=== PATIENT | male | born 1970 | race Caucasian/White ===

== ENCOUNTER 2016-09-03 20:09 | Emergency (ER) | payer OTHER ==
[2016-09-03 21:04] LABS: ABSOLUTE NEUTROPHIL COUNT 4.9 K/mm3 (1.8-7.7); BASO % 0.5 % (0.2-1.0); EOS # 0.1 (0.0-0.5); EOS % 1.3 % (0.9-2.9); HEMATOCRIT 40.1 % (32.0-52.0); HEMOGLOBIN 14.1 gm/l (14.0-18.0); IMM NEUT% 0.4 % (0-1); LYMPH # 2.2 (1.0-4.8); LYMPH % 27.6 % (15-45); MEAN CELL VOLUME 90.9 fl (80.0-94.0); MEAN CORPUSCULAR HGB CONC 35.2 g/dl (33.0-37.0); MEAN PLATELET VOLUME 8.7 fl (7.4-10.4); MONO # 0.6 (0.0-0.8); MONO % 8.1 % (4-12); NEUT % 62.1 % (43-75); PLATELET COUNT 283 K/mm3 (130-400); RED CELL DISTRIBUTION WIDTH 11.8 % (11.5-14.5)
[2016-09-03 21:24] LABS: ALB/GLOB RATIO 1.5 (>1.0); ALBUMIN 4.1 gm/dL (3.5-5.7)
--- NOTE | 2016-09-04 06:18 | CT ---
HEAD W/O CON COMPARISON: None HISTORY: Ground-level fall, hitting head. Seizure. TECHNIQUE: Using a [employer] [address] scanner, images were obtained through the head. An automated dose reduction technique was used to minimize patient radiation dose. DOSE INFORMATION: CTDIvol (mGy): 51.70 DLP(mGycm): 964.80 FINDINGS: Mass: None Intracranial Hemorrhage: None Acute Infarction: None Cerebral hemispheres: Normal Basal ganglia: Normal Thalami: Normal Brainstem: Normal Cerebellum: Normal Ventricles: Normal Basilar cisterns: Normal Corpus callosum: Normal Pituitary fossa: Normal Middle ears and mastoid air cells: Normal Orbits and sinuses: Normal Skull and scalp: Normal Dural sinuses and vessels: Partially imaged mucus retention cyst in the posterior left maxillary sinus. IMPRESSION: 1. No acute finding. No intracranial hemorrhage, mass effect, or depressed skull fracture. 2. Partially imaged mucus retention cyst in the posterior left maxillary sinus. Preliminary report by [facility] radiologist Ciara Soriano MD 09/03/2016 at 21:27
== END 2016-09-03 22:39 | disposition home or self-care (01) ==
LOC: ED 20:09
DX: R55 Syncope and collapse (principal); R56.9 Unspecified convulsions; F17.210 Nicotine dependence, cigarettes, uncomplicated